=== PATIENT | male | born 1970 | race Caucasian/White ===

== ENCOUNTER 2019-08-14 13:44 | Emergency (ER) | payer OTHER ==
[~2019-08-14] VITALS: Ht 177 cm; Wt 120.0 kg
--- NOTE | 2019-08-14 14:12 | ED General ---
General Chief Complaint: Dizziness/Syncope Stated Complaint: DIZZINESS; BP 162/110 Source of Information: Patient Exam Limitations: No Limitations History of Present Illness Date Seen by Provider: Aug 14, 2019 Time Seen by Provider: 14:09 Initial Comments 49-year-old male presents with dizziness. Patient describes as the room is spinn ing. That he gets a little bit nauseated if he moves around. Symptoms get worse if he moves. Patient also reports his blood pressure is higher than it normally is. He denies any chest pain, vomiting, headache, vision changes, shortness of breath, fever, chills or any other systemic complaints. She does not have any hearing loss or ringing of his ears. He has had a history of recurrent head trauma with concussions. Patient reports symptoms started this morning. No other systemic complaints Allergies and Home Medications Allergies Coded Allergies: codeine (Verified Allergy, Severe, 08/14/19) meperidine (Verified Allergy, Severe, 08/14/19) Patient Home Medication List Home Medication List Reviewed: Yes Review of Systems Review of Systems Constitutional: No chills; dizziness; No fever, No malaise, No weakness EENTM: No ear discharge, No hearing loss, No ear pain, No throat pain Respiratory: No cough, No short of breath Cardiovascular: No chest pain, No palpitations Gastrointestinal: No abdominal pain, No constipation, No diarrhea; nausea; No v omiting Genitourinary: no symptoms reported Musculoskeletal: no symptoms reported Skin: no symptoms reported Psychiatric/Neurological: No Symptoms Reported Hematologic/Lymphatic: No Symptoms Reported Past Fovovbe-Ayexcc-Hbsgno Hx Past Med/Social Hx: Reviewed Nursing Past Med/Soc Hx Patient Social History Alcohol Use: Denies Use Recreational Drug Use: No Smoking Status: Former Smoker 2nd Hand Smoke Exposure: No Recent Foreign Travel: No Recent Hopitalizations: No Physical Abuse: No Sexual Abuse: No Mistreated: No Fear: No Seasonal Allergies Seasonal Allergies: No Past Medical History Surgeries: Yes (KNEE SCOPE, MENISCUS REPAIR 2010, SHOULDER AND NECK SURGERY 1996) Orthopedic Respiratory: No Cardiac: No Neurological: Yes Concussion Genitourinary: No Gastrointestinal: No Musculoskeletal: No Endocrine: No HEENT: No Cancer: No Psychosocial: No Integumentary: No Blood Disorders: No Physical Exam Vital Signs Vital Signs - First Documented 08/14/19 14:08 Temp 36.8 Pulse 96 Resp 18 B/P (MAP) 159/100 (119) Pulse Ox 96 O2 Delivery Room Air Capillary Refill : Height, Weight, BMI Height: '" Weight: lbs. oz. kg; BMI Method: General Appearance: No Apparent Distress, WD/WN HEENT: PERRL/EOMI, TMs Normal, Normal ENT Inspection, Other (horizontal nystagmus) Neck: Normal Inspection, Non Tender, Supple Respiratory: Chest Non Tender, Lungs Clear, Normal Breath Sounds Cardiovascular: Regular Rate, Rhythm Gastrointestinal: Non Tender, Soft Extremity: Normal Capillary Refill, Non Tender Neurologic/Psychiatric: Alert, Oriented x3, No Motor/Sensory Deficits, Normal Mood/Affect, table operator II-XII Norm as Tested Skin: Normal Color, Warm/Dry Progress/Results/Core Measures Suspected Sepsis SIRS Temperature: Pulse: Respiratory Rate: Laboratory Tests 08/14/19 14:28: White Blood Count 8.7 Blood Pressure / Mean: Laboratory Tests 08/14/19 14:28: Creatinine 0.97, Platelet Count 212, Total Bilirubin 0.4 Results/Orders Lab Results Laboratory Tests Test 08/14/19 14:26 08/14/19 14:28 Range/Units Glucometer 98 70-110 MG/DL White Blood Count 8.7 4.3-11.0 10^3/uL Red Blood Count 5.07 4.35-5.85 10^6/uL Hemoglobin 15.1 13.3-17.7 G/DL Hematocrit 44 40-54 % Mean Corpuscular Volume 86 80-99 FL Mean Corpuscular Hemoglobin 30 25-34 PG Mean Corpuscular Hemoglobin Concent 35 32-36 G/DL Red Cell Distribution Width 11.9 10.0-14.5 % Platelet Count 212 130-400 10^3/uL Mean Platelet Volume 10.7 H 7.4-10.4 FL Neutrophils (%) (Auto) 66 42-75 % Lymphocytes (%) (Auto) 25 12-44 % Monocytes (%) (Auto) 8 0-12 % Eosinophils (%) (Auto) 1 0-10 % Basophils (%) (Auto) 1 0-10 % Neutrophils # (Auto) 5.7 1.8-7.8 X 10^3 Lymphocytes # (Auto) 2.2 1.0-4.0 X 10^3 Monocytes # (Auto) 0.7 0.0-1.0 X 10^3 Eosinophils # (Auto) 0.1 0.0-0.3 10^3/uL Basophils # (Auto) 0.1 0.0-0.1 10^3/uL Sodium Level 141 135-145 MMOL/L Potassium Level 3.9 3.6-5.0 MMOL/L Chloride Level 101 98-107 MMOL/L Carbon Dioxide Level 27 21-32 MMOL/L Anion Gap 13 5-14 MMOL/L Blood Urea Nitrogen 12 7-18 MG/DL Creatinine 0.97 0.60-1.30 MG/DL Estimat Glomerular Filtration Rate > 60 BUN/Creatinine Ratio 12 Glucose Level 104 70-105 MG/DL Calcium Level 9.4 8.5-10.1 MG/DL Corrected Calcium 8.5-10.1 MG/DL Total Bilirubin 0.4 0.1-1.0 MG/DL Aspartate Amino Transf (AST/SGOT) 15 5-34 U/L Alanine Aminotransferase (ALT/SGPT) 19 0-55 U/L Alkaline Phosphatase 74 40-136 U/L Troponin I < 0.30 <0.30 NG/ML Total Protein 7.3 6.4-8.2 GM/DL Albumin 4.6 H 3.2-4.5 GM/DL Micro Results Microbiology 08/14/19 Influenza Types A,B Antigen (RAUL) - Final, Complete My Orders Orders - GISELLA LEE DO Ct Head Wo (08/14/19 14:05) Accucheck Stat ONCE (08/14/19 14:05) Ekg Tracing (08/14/19 14:05) Cbc With Automated Diff (08/14/19 14:05) Comprehensive Metabolic Panel (08/14/19 14:05) Influenza A And B Antigens (08/14/19 14:05) Troponin I Fs (08/14/19 14:05) Meclizine Tablet (Antivert Tablet) (08/14/19 14:15) Medications Given in ED Current Medications Medications Dose Ordered Sig/Aleksandra Route Start Time Stop Time Status Last Admin Dose Admin Meclizine HCl 50 mg ONCE ONCE PO 08/14/19 14:15 08/14/19 14:16 DC 08/14/19 14:23 50 MG Vital Signs/I&O 08/14/19 14:08 Temp 36.8 Pulse 96 Resp 18 B/P (MAP) 159/100 (119) Pulse Ox 96 O2 Delivery Room Air Capillary Refill : Progress Note : Time: 15:05 Progress Note A shunt symptoms completely resolved with meclizine. Patient's exam very consistent with benign positional vertigo with negative EKG labs and CT. Patient to be discharged home in stable condition. ECG Initial ECG Impression Date: Aug 14, 2019 Initial ECG Impression Time: 14:23 Initial ECG Rhythm: Normal Sinus Initial ECG Intervals: Normal Initial ECG Impression: Normal Initial ECG Comparisson: No Previous ECG Available Departure Impression Primary Impression: Benign paroxysmal positional vertigo Qualified Codes: H81.10 - Benign paroxysmal vertigo, unspecified ear Disposition: HOME, SELF-CARE Condition: Stable Departure-Patient Inst. Referrals: PA AYALA MD (PCP/Family) Primary Care Physician Patient Instructions: Vertigo (a Type of Dizziness) (DC), Vestibular Exercises Add. Discharge Instructions: Meclizine or antivert as directed on package Emergency department focuses on treating and ruling out life-threatening diseases. Whenever possible, a diagnosis is given. However, most patients are given an impression based on their history, physical exam, and workup during your brief time in the ER. Information about probable diagnosis and other educational material has been provided. Please take the time to read and understand this information. It is very important that you follow up with a physician as discussed during the visit today. Failure to adhere to your follow-up instructions may lead to severe disability, injury, or so please make sure to keep your appointments or obtain one as requested. Please keep in mind the emergency department is not designed to your primary care or "family doctor" and nonurgent issues are best evaluated by an outpatient physician All discharge instructions reviewed with patient and/or family. Voiced understanding. GISELLA LEE DO Aug 14, 2019 14:12
[2019-08-14] MEDS ORDERED: MECLIZINE 25 MG (ANTIVERT) TAB PO ONE (14:15)
--- NOTE | 2019-08-14 14:28 | Diagnostic Imaging Report ---
PROCEDURE: CT head without contrast. TECHNIQUE: Multiple contiguous axial images were obtained through the brain without the use of intravenous contrast. Auto Exposure Controls were utilized during the CT exam to meet ALARA standards for radiation dose reduction. INDICATION: Dizziness. COMPARISON: None. FINDINGS: Moderate generalized cerebral and cerebellar parenchymal volume loss. No intracranial hemorrhage, mass effect, hydrocephalus, or extra-axial fluid collections. No CT evidence of a territorial infarction. Visualized paranasal sinuses and mastoids are clear. No fractures. IMPRESSION: No acute intracranial CT findings. Dictated by: Dictated on workstation # [id number]
[2019-08-14 14:37] LABS: HEMOGLOBIN 15.1 G/DL (13.3-17.7); MEAN CORPUSCULAR HEMOGLOBIN 30 PG (25-34); MEAN CORPUSCULAR HGB CONC 35 G/DL (32-36); MEAN CORPUSCULAR VOLUME 86 FL (80-99); MEAN PLATELET VOLUME 10.7 FL (7.4-10.4); PLATELET COUNT 212 10^3/uL (130-400); RED CELL DISTRIBUTION WIDTH 11.9 % (10.0-14.5); WHITE BLOOD COUNT 8.7 10^3/uL (4.3-11.0)
[2019-08-14 14:38] LABS: BASOPHILS # (AUTO) 0.1 10^3/uL (0.0-0.1); BASOPHILS % (AUTO) 1 % (0-10); EOSINOPHILS # (AUTO) 0.1 10^3/uL (0.0-0.3); EOSINOPHILS % (AUTO) 1 % (0-10); HEMATOCRIT 44 % (40-54); LYMPHOCYTES # (AUTO) 2.2 X 10^3 (1.0-4.0); LYMPHOCYTES % (AUTO) 25 % (12-44); MONOCYTES # (AUTO) 0.7 X 10^3 (0.0-1.0); MONOCYTES % (AUTO) 8 % (0-12); NEUTROPHILS # (AUTO) 5.7 X 10^3 (1.8-7.8); NEUTROPHILS % (AUTO) 66 % (42-75)
[2019-08-14 15:00] LABS: ALANINE AMINOTRANSFERASE 19 U/L (0-55); ALBUMIN 4.6 GM/DL (3.2-4.5); ALKALINE PHOSPHATASE 74 U/L (40-136); BILIRUBIN,TOTAL 0.4 MG/DL (0.1-1.0); BUN/CREATININE RATIO 12; CALCIUM 9.4 MG/DL (8.5-10.1); CARBON DIOXIDE 27 MMOL/L (21-32); CHLORIDE 101 MMOL/L (98-107); CREATININE SERUM 0.97 MG/DL (0.60-1.30); GFR ESTIMATED > 60; GLUCOSE 104 MG/DL (70-105); POTASSIUM 3.9 MMOL/L (3.6-5.0); SODIUM 141 MMOL/L (135-145); TOTAL PROTEIN 7.3 GM/DL (6.4-8.2)
[2019-08-14 15:17] VITALS: BP 150/84
--- OUTSIDE RECORDS SUMMARY | 2019-08-23 08:24 | XMS REPORT ---
Author Author Fernando GATICA Organization [facility] Address Unknown Care Team Providers Care Manager Imaging Name Role Phone CORINNA GATICA Unavailable PROBLEMS Unknown Problems ALLERGIES Substance Reaction Event Type Date Status Codiene Unknown Non Drug Allergy Jan, Active ENCOUNTERS Encounter Location Date Diagnosis [facility] [address] [facility] [id number] [address] [place] [address] [phone] Feb, Dental examination Z01.20 an d Dental caries K02.9 [facility] [id number] [place] [phone] Jan, Dental examination Z01.20 IMMUNIZATIONS No Known Immunizations SOCIAL HISTORY Never Assessed REASON FOR VISIT reza PLAN OF CARE Activity Details Follow Up prn Reason:#32 TE/45 mins VITAL SIGNS Blood pressure systolic 139 mmHg 2017-01-06 Blood pressure diastolic 95 mmHg 2017-01-06 MEDICATIONS Medication Instructions Dosage Frequency Start Date End Date Duration S tatus Amoxicillin 500 MG Orally every 8 hrs 1 capsule 8h 7 days Active RESULTS No Results PROCEDURES Procedure Date Ordered Result Body Site LTD ORAL EVALUATION - PROBLEM FOCUS January 06, 2017 INTRAORL-PERIAPICAL 1 FILM [id number] January 06, 2017 INSTRUCTIONS MEDICATIONS ADMINISTERED No Known Medications MEDICAL (GENERAL) HISTORY Type Description Date Medical History Head, Neck, and/or Jaw injuries Surgical History Broken neck, back 1996
--- OUTSIDE RECORDS SUMMARY | 2019-08-23 08:24 | XMS REPORT | Continuity of Care Document ---
Author Organization Unknown Address Unknown Phone Unavailable Allergies Active Description Code Type Severity Reaction Onset Reported/Identified Relationship to Patient Clinical Status Yes codeine [id number] Drug Allergy Severe N/A 08/14/2019 Yes meperidine [id number] Drug Allerg y Severe N/A 08/14/2019 Medications There is no data. Problems There is no data. Procedures There is no data. Results Test Result Range Influenza virus A and B antigen detectio n - 08/14/19 14:16 FLU RESULT NEGATIVE FOR INFLUENZA A AND B ANTIGENS BY IA NRG Capillary blood glucose measurement by g lucometer (mass/volume) - 08/14/19 14:26 Capillary blood glucose measurement by glucometer (mas s/volume) 98 mg/dL 70-110 Complete blood count (CBC) with automate d white blood cell (WBC) differential - 08/14/19 14:28 Blood leukocytes automated count (number/volume) 8.7 10*3/uL 4.3-11.0 Blood erythrocytes automated count (number/volume) 5.07 10*6/uL 4.35-5.85 Venous blood hemoglobin measurement (mass/volume) 15.1 g/dL 13.3-17.7 Blood hematocrit (volume fraction) 44 % 40-54 Automated erythrocyte mean corpuscular volume 86 [ foz_us] 80-99 Automated erythrocyte mean corpuscular h emoglobin (mass per erythrocyte) 30 pg 25-34 Automated erythrocyte mean corpuscular h emoglobin concentration measurement (mass/volume) 35 g/dL 32-36 Automated erythrocyte distribution width ratio 11. 9 % 10.0- 14.5 Automated blood platelet count (count/volume) 212 10*3/uL 130-400 Automated blood platelet mean volume measurement 10.7 [foz_us] 7.4-10.4 Automated blood neutrophils/100 leukocytes 66 % 42-75 Automated blood lymphocytes/100 leukocytes 25 % 12-44 Blood monocytes/100 leukocytes 8 % 0-12 Automated blood eosinophils/100 leukocytes 1 % 0-10 Automated blood basophils/100 leukocytes 1 % 0-10 Blood neutrophils automated count (number/volume) 5.7 10*3 1.8-7.8 Blood lymphocytes automated count (number/volume) 2.2 10*3 1.0-4.0 Blood monocytes automated count (number/volume) 0. 7 10*3 0.0-1.0 Automated eosinophil count 0.1 10*3/uL 0 .0-0.3 Automated blood basophil count (count/volume) 0.1 10*3/uL 0.0-0.1 Comprehensive metabolic panel - 08/14/19 14:28 Serum or plasma sodium measurement (moles/volume) 141 mmol/L 135-145 Serum or plasma potassium measurement (moles/volume) 3.9 mmol/L 3.6-5.0 Serum or plasma chloride measurement (moles/volume) 101 mmol/L 98-107 Carbon dioxide 27 mmol/L 21-32 Serum or plasma anion gap determination (moles/volume) 13 mmol/L 5-14 Serum or plasma urea nitrogen measurement (mass/volume ) 12 mg/dL 7-18 Serum or plasma creatinine measurement (mass/volume) 0.97 mg/dL 0.60-1.30 Serum or plasma urea nitrogen/creatinine mass ratio 12 NRG Serum or plasma creatinine measurement w ith calculation of estimated glomerular filtration rate > NRG Serum or plasma glucose measurement (mass/volume) 104 mg/dL 70-105 Serum or plasma calcium measurement (mass/volume) 9.4 mg/dL 8.5-10.1 Serum or plasma total bilirubin measurement (mass/volu me) 0.4 mg/dL 0.1-1.0 Serum or plasma alkaline phosphatase beryl surement (enzymatic activity/volume) 74 U/L 40-136 Serum or plasma aspartate aminotransfera se measurement (enzymatic activity/volume) 15 U/L 5-34 Serum or plasma alanine aminotransferase measurement (enzymatic activity/volume) 19 U/L 0-55 Serum or plasma protein measurement (mass/volume) 7.3 g/dL 6.4-8.2 Serum or plasma albumin measurement (mass/volume) 4.6 g/dL 3.2-4.5 TROPONIN I FS - 08/14/19 14:28 TROPONIN I FS < 0.30 <0.30 Encounters ACCT No. Visit Date/Time Discharge Status Pt. Type Provider Facility Loc./Unit Complaint [id number] 08/14/2019 13:48:00 020 15:17:00 DIS Emergency GISELLA LEE DO [facility] FS DIZZINESS; BP 162/110
--- OUTSIDE RECORDS SUMMARY | 2019-08-23 08:24 | XMS REPORT ---
Author Author Fernando REDDING Organization [facility] Address [address] [place] [address] Care Team Providers Care Bulk Sealer Name Role Phone PONCE REDDING Unavailable PROBLEMS Unknown Problems ALLERGIES Substance Reaction Event Type Date Status Codiene Unknown Non Drug Allergy Sep, Active ENCOUNTERS Encounter Location Date Diagnosis [facility] [address] [facility] [id number] [address] [address] Jan, [facility] [address] [place] [address] Sep, Viral gastroenteritis A08.4 and Fever R5 0.9 [facility] [address] [facility] [id number] [address] [place] [phone] Feb, Dental examination Z01.20 an d Dental caries K02.9 [facility] [address] [facility] [id number] [address] [place] [address] [phone] Jan, Dental examination Z01.20 IMMUNIZATIONS No Known Immunizations SOCIAL HISTORY Never Assessed REASON FOR VISIT chilling, fever, achey all over, Pt presents today with fever/ body aches/ chill ing/ vomiting/ cough x2 days/ K. Nanda Cosme TJesika(R) PLAN OF CARE Activity Details Follow Up if not improving with PCP or reg follow up Reason: VITAL SIGNS Height 70 in 2018-09-22 Weight 233 lbs 2018-09-22 Temperature 100.9 degrees Fahrenheit 2018-09-22 Heart Rate 117 bpm 2018-09-22 Oximetry 95 % 2018-09-22 BMI 33.43 kg/m2 2018-09-22 Blood pressure systolic 130 mmHg 2018-09-22 Blood pressure diastolic 76 mmHg 2018-09-22 MEDICATIONS Medication Instructions Dosage Frequency Start Date End Date Duration S tatus Ondansetron 4 MG Orally every 4 hrs 1 tablet on the tong ue and allow to dissolve as needed 4h Sep, 5 days Active RESULTS Name Result Date Reference Range INFLUENZA A & B (IN HOUSE) 2018-09-22 INFLUENZA A neg INFLUENZA B neg Control pass Lot # [id number] Exp date 05-04-19 PROCEDURES Procedure Date Ordered Result Body Site INFLUENZA ASSAY W/OPTIC September 22, 2018 INSTRUCTIONS MEDICATIONS ADMINISTERED No Known Medications MEDICAL (GENERAL) HISTORY Type Description Date Medical History Head, Neck, and/or Jaw injuries Surgical History Broken neck, back 1996 Surgical History shoulder arthroscopy - Left shoulder
== END 2019-08-14 15:17 | disposition home or self-care (01) ==
LOC: ER FS 13:48
DX: H81.10 Benign paroxysmal vertigo, unspecified ear (principal); Z87.820 Personal history of traumatic brain injury; Z88.5 Allergy status to narcotic agent; Z87.891 Personal history of nicotine dependence
CPT/HCPCS: 36415; 70450; 80053; 82962; 84484; 85025; 87804; 93005

== ENCOUNTER 2020-11-23 20:53 | Observation (INO) | payer OTHER ==
[~2020-11-23] VITALS: Ht 177.8 cm; Wt 112.4 kg
--- NOTE | 2020-11-23 20:57 | ED Chest Pain ---
General Stated Complaint: CHEST PAIN Source: patient History of Present Illness Date Seen by Provider: November 23, 2020 Time Seen by Provider: 20:56 Initial Comments 50-year-old male presents with chest pain beginning 30 minutes prior to arrival. Described as extreme pressure and feels like his chest is being pulled apart. Denies any history of coronary artery disease or previous episodes of chest pain otherthan an injury a year ago where he states he broke all of his ribs when a cow trampled him. Only medication is for BP (lisinopril) which he is not taking. No recent illness, no fever, chills, nausea or diaphoresis. Pain waxes and wanes and not associated w movement. Allergies and Home Medications Allergies Coded Allergies: codeine (Verified Allergy, Severe, 08/14/19) enoxaparin (Verified Allergy, Severe, anaphylaxis, 11/24/20) meperidine (Verified Allergy, Severe, 08/14/19) fentanyl (Verified Adverse Reaction, Intermediate, severe nausea, 11/24/20) Home Medications Lisinopril 10 Mg Tablet, 10 MG PO DAILY, (Reported) Last Action: Reviewed Patient Home Medication List Home Medication List Reviewed: Yes Review of Systems Review of Systems Constitutional: No chills, No malaise, No weakness Respiratory: Denies Cough, Denies Shortness of Air Cardiovascular: See HPI, Chest Pain; Denies Lightheadedness, Denies Palpitations, Denies Syncope Gastrointestinal: Denies Abdominal Pain, Denies Nausea, Denies Vomiting Musculoskeletal: back pain (upper back- between shoulder blades) Skin: No change in color, No rash Psychiatric/Neurological: Denies Headache, Denies Numbness, Denies Weakness Past Ndodgpy-Ikdsae-Inlhwx Hx Past Med/Social Hx: Reviewed Nursing Past Med/Soc Hx Physical Exam Vital Signs Vital Signs - First Documented 11/23/20 20:54 Temp 36.8 Pulse 89 Resp 18 B/P (MAP) 142/93 (109) Pulse Ox 97 O2 Delivery Room Air Capillary Refill : Height, Weight, BMI Height: '" Weight: lbs. oz. kg; BMI Method: General Appearance: No Apparent Distress, WD/WN HEENT: PERRL/EOMI, Normal ENT Inspection Neck: Full Range of Motion, Non Tender, Supple Respiratory: Lungs Clear, Normal Breath Sounds, No Accessory Muscle Use, No Respiratory Distress, Other (mild tenderness- Right anterior chest) Cardiovascular: Regular Rate, Rhythm, No Edema, No Gallop, No JVD Gastrointestinal: Normal Bowel Sounds, No Pulsatile Mass, Non Tender, Soft Extremity: Normal Capillary Refill, Non Tender, No Calf Tenderness Neurologic/Psychiatric: Alert, Oriented x3, Normal Mood/Affect Skin: Normal Color, Warm/Dry Progress/Results/Core Measures Results/Orders Lab Results Laboratory Tests Test 11/23/20 20:59 11/23/20 22:10 Range/Units White Blood Count 10.6 4.3-11.0 10^3/uL Red Blood Count 4.83 4.35-5.85 10^6/uL Hemoglobin 15.0 13.3-17.7 G/DL Hematocrit 43 40-54 % Mean Corpuscular Volume 88 80-99 FL Mean Corpuscular Hemoglobin 31 25-34 PG Mean Corpuscular Hemoglobin Concent 35 32-36 G/DL Red Cell Distribution Width 12.1 10.0-14.5 % Platelet Count 227 130-400 10^3/uL Mean Platelet Volume 10.6 H 7.4-10.4 FL Immature Granulocyte % (Auto) 1 % Neutrophils (%) (Auto) 64 42-75 % Lymphocytes (%) (Auto) 27 12-44 % Monocytes (%) (Auto) 7 0-12 % Eosinophils (%) (Auto) 1 0-10 % Basophils (%) (Auto) 1 0-10 % Neutrophils # (Auto) 6.8 1.8-7.8 X 10^3 Lymphocytes # (Auto) 2.8 1.0-4.0 X 10^3 Monocytes # (Auto) 0.8 0.0-1.0 X 10^3 Eosinophils # (Auto) 0.1 0.0-0.3 10^3/uL Basophils # (Auto) 0.1 0.0-0.1 10^3/uL Immature Granulocyte # (Auto) 0.1 0.0-0.1 10^3/uL Sodium Level 142 135-145 MMOL/L Potassium Level 4.1 3.6-5.0 MMOL/L Chloride Level 104 98-107 MMOL/L Carbon Dioxide Level 28 21-32 MMOL/L Anion Gap 10 5-14 MMOL/L Blood Urea Nitrogen 13 7-18 MG/DL Creatinine 1.34 H 0.60-1.30 MG/DL Estimat Glomerular Filtration Rate 56 BUN/Creatinine Ratio 10 Glucose Level 96 70-105 MG/DL Calcium Level 9.7 8.5-10.1 MG/DL Corrected Calcium 9.4 8.5-10.1 MG/DL Total Bilirubin 0.3 0.1-1.0 MG/DL Aspartate Amino Transf (AST/SGOT) 19 5-34 U/L Alanine Aminotransferase (ALT/SGPT) 25 0-55 U/L Alkaline Phosphatase 85 40-136 U/L Troponin I < 0.30 < 0.30 <0.30 NG/ML Total Protein 7.1 6.4-8.2 GM/DL Albumin 4.4 3.2-4.5 GM/DL My Orders Orders - ROVENSTELIGIO MARROQUIN DO Ed Iv/Invasive Line Start (11/23/20 20:56) Cbc With Automated Diff (11/23/20 20:56) Comprehensive Metabolic Panel (11/23/20 20:56) Troponin I Fs (11/23/20 20:56) Ekg Tracing (11/23/20 20:56) Chest 1 View Ap/Pa Only (11/23/20 20:56) Aspirin Chewable Tablet (Baby Aspirin Ch (11/23/20 21:15) Nitroglycerin 0.4 Mg Btl 25's (Nitrostat (11/23/20 21:15) Fentanyl Inj (Sublimaze Injection) (11/23/20 21:30) Ct Chest W (11/23/20 21:21) Ns Iv 1000 Ml (Sodium Chloride 0.9%) (11/23/20 21:45) Iohexol Injection (Omnipaque 350 Mg/Ml 1 (11/23/20 21:45) Received Contrast (Hold Metformin- Contr (11/23/20 21:45) Sodium Chloride Flush (Catheter Flush Sy (11/23/20 21:45) Ns (Ivpb) (Sodium Chloride 0.9% Ivpb Bag (11/23/20 21:45) Ondansetron Injection (Zofran Injectio (11/23/20 21:45) Ondansetron Injection (Zofran Injectio (11/23/20 21:32) Troponin I Fs (11/23/20 22:06) Medications Given in ED Vital Signs/I&O 11/23/20 11/23/20 20:54 23:33 Temp 36.8 Pulse 89 100 Resp 18 18 B/P (MAP) 142/93 (109) 137/80 Pulse Ox 97 96 O2 Delivery Room Air Room Air Progress Progress Note : Time: 21:48 Progress Note Patient did not have relief w NTG, given 50mcg Fentanyl IV and was sedated w pain relief then awoke w severe vomiting episode. Cleaned up and states CP still there but not as bad. Initial ECG Impression Date: November 23, 2020 Initial ECG Impression Time: 20:54 Initial ECG Rate: 88 Initial ECG Rhythm: Normal Sinus Initial ECG Intervals: Normal Initial ECG Impression: Normal Initial ECG Comparisson: No Previous ECG Available Comment no ischemic changes. Diagnostic Imaging Diagonstic Imaging: Xray Plain Films/CT/US/NM/MRI: chest Comments Date of Exam:11/23/20 CHEST 1 VIEW AP/PA ONLY Chest 1 view AP/PA only. Indication: Chest pain. Comparison: None available. Findings: No focal airspace disease in the visualized lungs. Please note that the posterior lower lobes are poorly evaluated by portable radiography. No pleural effusion or pneumothorax. Enlargement of cardiac silhouette could be due to cardiomegaly, although this may be accentuated due to portable technique. Prior surgical changes in the distal right clavicle with a partially threaded lag screw in place. Impression: No acute cardiopulmonary process by portable radiography. Dictated by: Dictated on workstation # [id number] Dict: 11/23/202131 Trans: 11/23/202140 [facility] [id number] Interpreted by: MIR JIANG MD Electronically signed by: MIR JIANG MD 11/23/202140 Departure Communication (Admissions) Time/Spoke to Admitting Phy: 23:[address] Link who accepts for OBs admission. Discussed presentation of severe "tearing chest pain" beginning 30 minutes PERSONAL INJURY [employer] and work up including CT with normal findings. 2 normal troponins 1 hour apart. Patient without a cardiac Hx. Does have significant Hx of trauma including multiple rib fx's one year ago. Impression Primary Impression: Chest pain Qualified Codes: R07.9 - Chest pain, unspecified Disposition: 30 STILL A PATIENT Condition: Improved Admissions Decision to Admit Reason: Admit from ER (General) Decision to Admit/Date: November 23, 2020 Time/Decision to Admit Time: 21:00 ELIGIO DANIELS DO November 23, 2020 20:57
[2020-11-23 21:05] LABS: BASOPHILS # (AUTO) 0.1 10^3/uL (0.0-0.1); BASOPHILS % (AUTO) 1 % (0-10); EOSINOPHILS # (AUTO) 0.1 10^3/uL (0.0-0.3); EOSINOPHILS % (AUTO) 1 % (0-10); HEMATOCRIT 43 % (40-54); LYMPHOCYTES # (AUTO) 2.8 X 10^3 (1.0-4.0); LYMPHOCYTES % (AUTO) 27 % (12-44); MEAN CORPUSCULAR HEMOGLOBIN 31 PG (25-34); MEAN CORPUSCULAR HGB CONC 35 G/DL (32-36); MEAN CORPUSCULAR VOLUME 88 FL (80-99); MEAN PLATELET VOLUME 10.6 FL (7.4-10.4); MONOCYTES # (AUTO) 0.8 X 10^3 (0.0-1.0); MONOCYTES % (AUTO) 7 % (0-12); NEUTROPHILS # (AUTO) 6.8 X 10^3 (1.8-7.8); NEUTROPHILS % (AUTO) 64 % (42-75); PLATELET COUNT 227 10^3/uL (130-400); WHITE BLOOD COUNT 10.6 10^3/uL (4.3-11.0)
[2020-11-23] MEDS ORDERED: ASPIRIN 81 MG CHEW (CHILDREN'S ASA) PO ONE (21:15)
[2020-11-23] MEDS ORDERED: NITROGLYCERIN 0.4 MG SL TABS BTL 25'S SL PRN (21:15)
[2020-11-23 21:23] LABS: ALANINE AMINOTRANSFERASE 25 U/L (0-55); ALBUMIN 4.4 GM/DL (3.2-4.5); ALKALINE PHOSPHATASE 85 U/L (40-136); BILIRUBIN,TOTAL 0.3 MG/DL (0.1-1.0); BUN/CREATININE RATIO 10; CALCIUM 9.7 MG/DL (8.5-10.1); CARBON DIOXIDE 28 MMOL/L (21-32); CHLORIDE 104 MMOL/L (98-107); CREATININE SERUM 1.34 MG/DL (0.60-1.30); GFR ESTIMATED 56; GLUCOSE 96 MG/DL (70-105); POTASSIUM 4.1 MMOL/L (3.6-5.0); SODIUM 142 MMOL/L (135-145); TOTAL PROTEIN 7.1 GM/DL (6.4-8.2)
[2020-11-23] MEDS ORDERED: fentaNYL INJ 100 MCG/2 ML AMP IVP ONE (21:30)
[2020-11-23] MEDS ORDERED: ONDANSETRON 4 MG/2 ML (SDV) Z0FRAN ONE (21:32)
--- NOTE | 2020-11-23 21:37 | Diagnostic Imaging Report ---
Chest 1 view AP/PA only. Indication: Chest pain. Comparison: None available. Findings: No focal airspace disease in the visualized lungs. Please note that the posterior lower lobes are poorly evaluated by portable radiography. No pleural effusion or pneumothorax. Enlargement of cardiac silhouette could be due to cardiomegaly, although this may be accentuated due to portable technique. Prior surgical changes in the distal right clavicle with a partially threaded lag screw in place. Impression: No acute cardiopulmonary process by portable radiography. Dictated by: Dictated on workstation # [id number]
[2020-11-23] MEDS ORDERED: CATHETER FLUSH 10 ML SYR IV PRN (21:45)
[2020-11-23] MEDS ORDERED: IOHEXOL 350 MG/ML 150 ML (OMNIPAQUE 350) VIAL IV ONE (21:45)
[2020-11-23] MEDS ORDERED: HOLD METFORMIN - RECEIVED CONTRAST 20 ML VIAL IV SCH (21:45)
[2020-11-23] MEDS ORDERED: ONDANSETRON 4 MG/2 ML (SDV) Z0FRAN IVP ONE (21:45)
[2020-11-23] MEDS ORDERED: NS 100 ML (IVPB) BAG IV ONE (21:45)
[2020-11-23] MEDS ORDERED: NS IV 1000 ML 1,000 ML IV SCH (21:45)
[2020-11-24 00:50] VITALS: BP 139/86
[2020-11-24] MEDS ORDERED: NS IV 1000 ML 1,000 ML IV SCH (01:15)
[2020-11-24] MEDS ORDERED: ONDANSETRON 4 MG/2 ML (SDV) Z0FRAN IVP PRN (01:15)
[2020-11-24] MEDS ORDERED: NITROGLYCERIN 0.4 MG SL TABS BTL 25'S SL PRN (01:15)
[2020-11-24 03:29] LABS: CHOLESTEROL 165 MG/DL (< 200); HDL CHOLESTEROL 44 MG/DL (40-60); TRIGLYCERIDES 121 MG/DL (<150); VLDL CHOLESTEROL 24 MG/DL (5-40)
[2020-11-24 04:59] VITALS: BP 125/78
[2020-11-24] MEDS ORDERED: LISI10TA25 PO (06:58)
[2020-11-24 08:00] VITALS: BP 132/78
--- NOTE | 2020-11-24 08:40 | Diagnostic Imaging Report ---
PROCEDURE: CT chest with contrast only. TECHNIQUE: Multiple contiguous axial images were obtained through the chest after administration of intravenous contrast. Auto Exposure Controls were utilized during the CT exam to meet ALARA standards for radiation dose reduction. INDICATION: Severe chest pain COMPARISON: Chest x-ray from the same day FINDINGS: The heart is upper normal in size. There is no pericardial effusion. The aorta is normal in caliber and no evidence of dissection is seen on these images. There is no mediastinal or axillary adenopathy. There is motion artifact throughout the exam, resulting in suboptimal evaluation. This appears to cause some haziness in the lungs but no focal consolidation is seen. There is minimal dependent atelectasis in the lungs. There is no pleural effusion or pneumothorax. No central endobronchial lesions are identified. No acute osseous abnormality is seen. Imaged portions of the upper abdomen demonstrate no acute abnormality. IMPRESSION: 1. Motion degraded exam, but no focal consolidation or acute pulmonary abnormality is identified. 2. No dissection seen of the thoracic aorta. Dictated by: Dictated on workstation # [id number]
[2020-11-24] MEDS ORDERED: ASPIRIN E.C. 81 MG (ECOTRIN) TAB PO SCH (09:00)
[2020-11-24 12:00] VITALS: BP 141/97
--- NOTE | 2020-11-24 12:19 | Short Stay Summary-Hospitalist ---
History of Present Illness HPI/Chief Complaint Pt is a 50yoCM with a PMH of HTN and GERD who presented to the ER due to severe chest pain. 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 After getting home he developed severe tearing chest pain. He has a history of rib fractures and muscle injuries and this did not feel similar to that. He was somewhat SOB but was not nauseated. He is not very compliant with his Lisinopril and was worried he was having a heart attack so decided to seek evaluation in the ER. CTA was done and was negative for PE and dissection or aortic injury. He was given fentanyl for pain and started vomiting profusely. Troponin on arrival was negative. he was admitted for observation. He reports now that his symptoms are all resolved and he would like to go home. Source: patient Date Seen 11/24/20 Time Seen by a Provider: 12:14 Attending Physician Rachele Link MD PCP Marlene Meehan MD Referring Physician Date of Admission November 24, 2020 at 00:45 Home Medications & Allergies Home Medications Reviewed patient Home Medication Reconciliation performed by pharmacy medication reconciliations organic extractions technician and/or nursing. Patients Allergies have been reviewed. Allergies Allergies Coded Allergies codeine (Verified Allergy, Severe, 08/14/19) enoxaparin (Verified Allergy, Severe, anaphylaxis, 11/24/20) meperidine (Verified Allergy, Severe, 08/14/19) fentanyl (Verified Adverse Reaction, Intermediate, severe nausea, 11/24/20) Past Medical/Social/Family Hx Patient Social History Employed/Student: employed Tobacco Use?: No Substance use?: No Alcohol Use?: No Pt stated abuse/neglect: No Immunizations Up To Date Influenza Vaccine Up-to-Date: No; Not Current Current Status Advance Directives: No Communicates: Verbally Primary Language: Egyptian Preferred Spoken Language: Egyptian Is interpretation needed?: No Implanted or Applied Medical D: None Review of Systems Constitutional: No chills, No fever EENTM: no symptoms reported Respiratory: No cough, No dyspnea on exertion, No orthopnea, No phlegm; short of breath Cardiovascular: chest pain; No edema, No Hx of Intervention, No palpitations, No syncope Gastrointestinal: No abdominal pain; heartburn, nausea, vomiting Genitourinary: no symptoms reported Musculoskeletal: no symptoms reported Skin: no symptoms reported, rash (chronic- worked up by Dr Meehan) Psychiatric/Neurological: No Symptoms Reported Physical Exam Physical Exam Vital Signs Vital Signs - First Documented 11/23/20 20:54 Temp 36.8 Pulse 89 Resp 18 B/P (MAP) 142/93 (109) Pulse Ox 97 O2 Delivery Room Air Capillary Refill : Less Than 3 Seconds Height, Weight, BMI Height: '" Weight: lbs. oz. kg; 35.55 BMI Method: General Appearance: No Apparent Distress, WD/WN, Obese HEENT: PERRL/EOMI, Moist Mucous Membranes; No Scleral Icterus (L), No Scleral Icterus (R) Neck: Normal Inspection, Supple Respiratory: Chest Non Tender, Lungs Clear, No Accessory Muscle Use, No Respiratory Distress, Other (mild tenderness- Right anterior chest) Cardiovascular: Regular Rate, Rhythm, No JVD, No Murmur Gastrointestinal: Normal Bowel Sounds, No Pulsatile Mass, Non Tender, Soft; No Distended, No Guarding Extremity: Normal Capillary Refill, Non Tender, No Calf Tenderness, No Pedal Edema; No Swelling Neurologic/Psychiatric: Alert, Oriented x3, No Motor/Sensory Deficits, Normal Mood/Affect Skin: Normal Color, Warm/Dry Results Results/Procedures Labs Laboratory Tests 11/23/20 20:59 Patient resulted labs reviewed. Imaging: Reviewed Imaging Report Imaging [facility], [place] NAME: ALIZA BOYD [facility] REC#: [id number] PT STATUS: REG ER : 1970 PHYSICIAN: ELIGIO DANIELS DO ADMIT DATE: 11/23/20/ER FS Signed Date of Exam:11/23/20 CHEST 1 VIEW AP/PA ONLY Chest 1 view AP/PA only. Indication: Chest pain. Comparison: None available. Findings: No focal airspace disease in the visualized lungs. Please note that the posterior lower lobes are poorly evaluated by portable radiography. No pleural effusion or pneumothorax. Enlargement of cardiac silhouette could be due to cardiomegaly, although this may be accentuated due to portable technique. Prior surgical changes in the distal right clavicle with a partially threaded lag screw in place. Impression: No acute cardiopulmonary process by portable radiography. Dictated by: Dictated on workstation # [id number] Dict: 11/23/202131 Trans: 11/23/202140 [facility] [id number] Interpreted by: MIR JIANG MD Electronically signed by: MIR JIANG MD 11/23/202140 [facility] [place] NAME: ALIZA BOYD [facility] REC#: [id number] PT STATUS: ADM Tanya : 1970 PHYSICIAN: ELIGIO DANIELS DO ADMIT DATE: 11/24/20 Draft Date of Exam:11/23/20 CT CHEST W PROCEDURE: CT chest with contrast only. TECHNIQUE: Multiple contiguous axial images were obtained through the chest after administration of intravenous contrast. Auto Exposure Controls were utilized during the CT exam to meet ALARA standards for radiation dose reduction. INDICATION: Severe chest pain COMPARISON: Chest x-ray from the same day FINDINGS: The heart is upper normal in size. There is no pericardial effusion. The aorta is normal in caliber and no evidence of dissection is seen on these images. There is no mediastinal or axillary adenopathy. There is motion artifact throughout the exam, resulting in suboptimal evaluation. This appears to cause some haziness in the lungs but no focal consolidation is seen. There is minimal dependent atelectasis in the lungs. There is no pleural effusion or pneumothorax. No central endobronchial lesions are identified. No acute osseous abnormality is seen. Imaged portions of the upper abdomen demonstrate no acute abnormality. IMPRESSION: 1. Motion degraded exam, but no focal consolidation or acute pulmonary abnormality is identified. 2. No dissection seen of the thoracic aorta. Dictated on workstation # [id number] Dict: 11/24/2014 Trans: 11/24/20 0838 [facility] [id number] Interpreted by: CORINNA MARISCAL MD Electronically signed by: Short Stay Diagnosis Discharge Diagnosis-Short Stay Admission Diagnosis Chest pain Final Discharge Diagnosis Chest pain Conclusion Plan Chest pain HTN troponin negative x3 Monitored on telemetry Cardiology consulted, appreciate recs negative CT chest Sounds more like esophageal spasm Encouraged compliance with Nexium DVT ppx: Allergy to lovenox- ambulate/SCDs RACHELE LINK MD November 24, 2020 12:19
--- NOTE | 2020-11-24 13:17 | Discharge Inst-Simple/Standard ---
Discharge Inst-Standard Patient Instructions/Follow Up Plan of Care/Instructions/FU: Please continue to take your medications as written. Please follow up with your primary care doctor to follow up this hospital stay. Activity as Tolerated: Yes Discharge Diet: Cardiac Diet Return to The Hospital For: Chest pain, shortness of breath, confusion, weakness, fever, if you feel you are getting worse. RACHELE RAMIREZ MD November 24, 2020 13:17
--- NOTE | 2020-11-24 18:13 | Consultation-Cardiology ---
HPI-Cardiology Cardiology Consultation: Date of Consultation 11/24/20 Date of Admission Attending Physician Rosangela Link MD Admitting Physician Marlene Meehan MD Consulting Physician Heriberto TAY MD HPI: Time Seen by a Provider: 12:00 Chief Complaint: Chest pain This is a 50-year-old gentleman with history of hypertension and GERD. He presents with chest pain. He has had numerous traumatic injuries to his chest with numerous rib fractures. However he complained of tearing chest pain and went to [facility]. CT angiography did not show any evidence of pulmonary embolism or aortic dissection. Cardiac troponin x3 are negative. When I saw the patient he was not having any further chest pain and was very comfortable. Review of Systems-Cardiology Review of Systems Constitutional: As described under HPI; No As described under HPI, No no symptoms reported, No chills, No fever, No lightheadedness Eyes: No As described under HPI, No no symptoms reported, No blindness, No blurred vision, No contact lenses, No drainage, No decreased acuity, No foreign body sensation, No pain, No vision change Ears/Nose/Throat: No As described under HPI, No no symptoms reported, No chronic hearing loss, No ear discharge, No ear pain, No nasal drainage, No ulcerations Respiratory: No no symptoms reported; As described under HPI; No As described under HPI, No cough, No orthopnea, No shortness of breath, No SOB with excertion Cardiovascular: No no symptoms reported; As described under HPI; No As described under HPI; chest pain; No edema, No irregular heart rate, No lightheadedness, No palpitations Gastrointestinal: No no symptoms reported, No As described under HPI, No abdomen distended, No abdominal pain, No blood streaked bowels, No constipation, No diarrhea, No nausea, No vomiting, No stool coloration changes Genitourinary: No As described under HPI, No burning, No dysuria, No discharge, No frequency, No flank pain, No hematuria, No urgency Skin: No rash, No skin related problems, No ulcerations Psychiatric/Neurological: No anxiety, No depression, No seizure, No focal weakness, No syncope Hematologic: No bleeding abnormalities WLM-Zispbj-Jyjgyl Hx Patient Social History Employed/Student: employed 2nd [employer] Smoke Exposure: No Have you traveled recently?: No Alcohol Use?: No Pt feels they are or have been: No Past Medical History PMH As described under Assessment. Allergies and Home Medications Allergies Coded Allergies: codeine (Verified Allergy, Severe, 08/14/19) enoxaparin (Verified Allergy, Severe, anaphylaxis, 11/24/20) meperidine (Verified Allergy, Severe, 08/14/19) fentanyl (Verified Adverse Reaction, Intermediate, severe nausea, 11/24/20) Home Medications Lisinopril 10 Mg Tablet, 10 MG PO DAILY, (Reported) Last Action: Reviewed Patient Home Medication List Home Medication List Reviewed: Yes Physical Exam-Cardiology Physical Exam Vital Signs/I&O 11/24/20 11/24/20 11/24/20 11/24/20 07:00 08:00 08:00 12:00 Temp 36.6 36.5 Pulse 105 83 98 Resp 22 20 B/P (MAP) 132/78 (96) 141/97 (112) Pulse Ox 97 97 O2 Delivery Room Air Room Air Room Air 11/24/20 11/24/20 12:38 14:00 Pulse 77 B/P (MAP) 11/24/20 00:00 Intake Total 1000 ml Balance 1000 ml Capillary Refill : Less Than 3 Seconds Constitutional: appears stated age, AAO x 3; No apparent distress; well- developed, well-nourished HEENT: PERRL; No discharge; hearing is well preserved, oral hygience is good; No ulceration, No xanthelasmas are seen Neck: No carotid bruit; carotid pulses are 2 + bilaterally Respiratory: chest is bilaterally symmetric, lungs clear to auscultation Cardiovascular: regular rate-rhythm, S1 and S2 Gastrointestinal: soft, audible bowel sounds; No spleenomegaly Rectal: deferred Extremities: No clubbing, No cyanosis; no lower extremity edema bilateral; No significant edema Neurologic/Psychiatric: no motor/sensory deficits, alert, normal mood/affect, oriented x 3, power is 5/5 both on sides Skin: normal color; No rash, No ulcerations Data Review Labs Laboratory Tests 11/23/20 20:59: White Blood Count 10.6, Red Blood Count 4.83, Hemoglobin 15.0, Hematocrit 43, Mean Corpuscular Volume 88, Mean Corpuscular Hemoglobin 31, Mean Corpuscular Hemoglobin Concent 35, Red Cell Distribution Width 12.1, Platelet Count 227, Mean Platelet Volume 10.6H, Immature Granulocyte % (Auto) 1, Neutrophils (%) (Auto) 64, Lymphocytes (%) (Auto) 27, Monocytes (%) (Auto) 7, Eosinophils (%) (Auto) 1, Basophils (%) (Auto) 1, Neutrophils # (Auto) 6.8, Lymphocytes # (Auto) 2.8, Monocytes # (Auto) 0.8, Eosinophils # (Auto) 0.1, Basophils # (Auto) 0.1, Immature Granulocyte # (Auto) 0.1, Sodium Level 142, Potassium Level 4.1, Chloride Level 104, Carbon Dioxide Level 28, Anion Gap 10, Blood Urea Nitrogen 13, Creatinine 1.34H, Estimat Glomerular Filtration Rate 56, BUN/Creatinine Ratio 10, Glucose Level 96, Calcium Level 9.7, Corrected Calcium 9.4, Total Tony irubin 0.3, Aspartate Amino Transf (AST/SGOT) 19, Alanine Aminotransferase (ALT/SGPT) 25, Alkaline Phosphatase 85, Troponin I < 0.30, Total Protein 7.1, Albumin 4.4 11/23/20 22:10: Troponin I < 0.30 11/24/20 03:00: Troponin I < 0.028, Triglycerides Level 121, Cholesterol Level 165, LDL Cholesterol Direct 113, VLDL Cholesterol 24, HDL Cholesterol 44 ECG Impression ECG Initial ECG Rhythm: Normal Sinus Initial ECG Impression: Normal A/P-Cardiology Assessment/Admission Diagnosis Chest pain, Hypertension, Previous history of traumatic injuries to the chest. Plan Aortic dissection pulmonary embolism ruled out with a negative CTA. Serial troponin x3 -. EKG does not show any acute ST-T wave abnormalities. I discussed at length with the patient and and recommended an inpatient nuclear stress test tomorrow morning. However the patient insisted to go home. I discussed with him the small risk of having an PR overnight. He understands the risk and would still like to go home. We will arrange for nuclear stress test tomorrow. Follow-up with Dr. Davis or Dr. Niño. Thank you for your consultation. Please call me if you have any questions. Ponce Tay MD, FACP, FACC, FSCAI, FHRS, CCDS Interventional Cardiology Cardiac Electrophysiology Vascular Medicine and Endovascular Interventions Heriberto TAY MD November 24, 2020 18:13
== END 2020-11-24 14:50 | disposition home or self-care (01) ==
LOC: EDUNIT# 20:53 → ER FS 20:57 → 4TH 11-24 00:45
PROVIDERS: ADMIT Family Medicine; ATTEND Family Medicine
DX: R07.89 Other chest pain (principal); I11.9 Hypertensive heart disease without heart failure; K21.9 Gastro-esophageal reflux disease without esophagitis; Z87.81 Personal history of (healed) traumatic fracture; Z87.828 Personal history of other (healed) physical injury and trauma; Z91.14 Patient's other noncompliance with medication regimen; Z88.5 Allergy status to narcotic agent; Z88.8 Allergy status to other drugs, medicaments and biological substances; Z79.899 Other long term (current) drug therapy
CPT/HCPCS: 36415; 71045; 71260; 80053; 80061; 84484; 85025; 93005; G0378

== ENCOUNTER → 2021-06-04 | Outpatient (CLI) | payer OTHER ==
[~2021-06-04] MED LIST: LISI10TA25 PO
--- NOTE | 2021-06-04 10:29 | Diagnostic Imaging Report ---
INDICATION: Cough. Comparison with CT chest from 11/23/2020. FINDINGS: PA and lateral views. The lungs are well-aerated and clear. There is no air-trapping. The heart is not enlarged. No pulmonary edema or hilar adenopathy. No pneumothorax or pleural effusion. No bony abnormalities. IMPRESSION: Normal PA and lateral chest. Dictated by: Dictated on workstation # [id number]
== END ==
LOC: RAD FS 10:11
PROVIDERS: ATTEND Registered Nurse Emergency
DX: R05.1 Acute cough (principal)
CPT/HCPCS: 71046

== ENCOUNTER 2022-11-02 19:06 | Emergency (ER) | payer OTHER ==
[~2022-11-02] VITALS: Ht 177 cm; Wt 111.1 kg
[2022-11-02] MEDS ORDERED: KETOROLAC 60 MG/2 ML VIAL IM STA (19:25)
[2022-11-02] MEDS ORDERED: ORPHENADRINE 60 MG/2 ML (NORFLEX) AMP (ED ONLY) IM STA (19:25)
--- NOTE | 2022-11-02 19:32 | ED Fall/Injury ---
General Stated Complaint: FELL,R LEG PAIN Source: patient History of Present Illness Date Seen by Provider: November 02, 2022 Time Seen by Provider: 19:09 Initial Comments 52-year-old male presenting by private vehicle with complaints of increasing pain to his right hip and pelvis and right femur since falling at noon today. 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 He had continued to work after the injury. He denies hitting his leg on anything or having prior injury/problems with hip/leg. He has not taken any medicine for his pain. He denies numbness or tingling in the leg. He has increased pain with am bulation and movement. He has history of hypertension and takes lisinopril but has not taken it today. He feels that the pain increased as he was sitting in his truck in the afternoon and for drive here. He denies hitting his head or getting knocked out. He reports talking to a family member that is a nurse and they told him that he might have a broken leg and he should go be seen in the ED. Occurred: this afternoon (around noon today) Severity: severe Injuries/Pain Location: lower extremity (right hip/pelvis/medial thigh) Context: tripped Loss of Consciousness: no loss of consciousness Modifying Factors: Worse With Movement Associated Symptoms (Fall): No Abdominal Pain, No Chest Pain, No Confusion, No Dizziness, No Headache, No Lightheadedness, No Muscle Spasms, No Nausea/Vomiting, No Neck Pain, No Ringing in Ears, No Seizures, No Shortness of Air, No Slurred Speech; Trouble Walking (due to pain in thigh/pelvis/hip); No Vision Changes Allergies and Home Medications Allergies Coded Allergies: codeine (Verified Allergy, Severe, 08/14/19) enoxaparin (Verified Allergy, Severe, anaphylaxis, 11/24/20) meperidine (Verified Allergy, Severe, 08/14/19) fentanyl (Verified Adverse Reaction, Intermediate, severe nausea, 11/24/20) Patient Home Medication List Home Medication List Reviewed: Yes Ibuprofen (Ibuprofen) 800 Mg Tablet, 800 MG PO Q8H PRN for PAIN Prescribed by: MARIE OROSCO on 11/02/222014 Lisinopril (Lisinopril) 10 Mg Tablet, 10 MG PO DAILY, (Reported) Entered as Reported by: CINTIA ORLANDO on 11/24/20 0658 Methocarbamol (Methocarbamol) 750 Mg Tablet, 1,500 MG PO Q8H PRN for muscle spasms/pain Prescribed by: MARIE OROSCO on 11/02/222014 Review of Systems Review of Systems Constitutional: No chills, No fever Eyes: No Symptoms Reported Ears, Nose, Mouth, Throat: no symptoms reported Respiratory: no symptoms reported Cardiovascular: no symptoms reported Gastrointestinal: no symptoms reported Genitourinary: no symptoms reported Musculoskeletal: see HPI Skin: change in color (faint bruise to right medial thigh) Psychiatric/Neurological: Denies Numbness, Denies Tingling, Denies Weakness Past Ldbebrb-Phwegf-Houvol Hx Seasonal Allergies Seasonal Allergies: No Past Medical History Surgery/Hospitalization HX: Hypertension Surgeries: Yes (KNEE SCOPE, MENISCUS REPAIR 2010, SHOULDER AND NECK SURGERY 1996) Orthopedic Respiratory: No Cardiac: Yes Hypertension Neurological: Yes Concussion Genitourinary: No Gastrointestinal: No Musculoskeletal: No Endocrine: No HEENT: No Cancer: No Psychosocial: No Integumentary: No Blood Disorders: No Physical Exam Vital Signs Capillary Refill : Height, Weight, BMI Height: '" Weight: lbs. oz. kg; 35.55 BMI Method: General Appearance: WD/WN, no apparent distress, obese Cardiovascular: normal peripheral pulses Extremities: normal range of motion (has pain with ROM), normal capillary refill, other (pain to right thigh, pain with ROM to right hip and leg. no crepitus or stepoff or deformity noted to right thigh/hip/pelvis. distal intact neurovascular and tendons. He has faint ecchymosis to medial thigh and erythematous hair follicles to bilateral thighs for possible folliculitis. 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, no motor/sensory deficits, alert, oriented x 3 Skin: warm/dry Dahiana Coma Score Best Eye Response: (4) Open Spontaneously Best Verbal Response: (5) Oriented Best Motor Response: (6) Obeys Commands Dahiana Total: 15 Progress/Results/Core Measures Results/Orders My Orders Orders - MARIE OROSCO MD Ketorolac Injection (Toradol Injection) (11/02/22 19:25) Orphenadrine Inj (Ed Only) (Norflex Inje (11/02/22 19:25) Femur 2 View Right (11/02/22 19:25) Pelvis (Ap) (11/02/22 19:25) Progress Progress Note #1: Progress Note Potential diagnosis of groin strain, thigh contusion, hip fracture, pubic ramus fracture, pelvis fracture. Order Toradol 60 mg IM for pain and inflammation along with Norflex 60 mg IM for muscle spasms and pain. X-rays of the pelvis and right femur to evaluate for possible bony abnormality. He is able to stand and walk but it is painful for him. Progress Note #2: Time: 20:11 Progress Note On my personal interpretation and review of his right femur and pelvis x-rays did not appreciate any acute fracture or bony abnormality. He had no dislocation. We will proceed with anti-inflammatories and muscle relaxer. Use ice for 20 to 30 minutes every few hours as needed for pain and add in heat after 2 days. If not improving over the next 3 to 7 days check back with the primary care provider for further evaluation. Progress Note #3: Time: 20:25 Progress Note I reviewed the radiologist reports on the femur and pelvis x-rays in the did not see anything else acute similar to my interpretations. When reviewing results with the patient she reports that the medicine that we had given him was starting to kick in and he was feeling better with less pain and able to move easier. Diagnostic Imaging Diagonstic Imaging: Xray Plain Films/CT/US/NM/MRI: pelvis Comments [facility], [place] NAME: ALIZA BOYD [facility] REC#: [id number] PT STATUS: REG ER : 1970 PHYSICIAN: MARIE OROSCO MD ADMIT DATE: 11/02/22/ER FS Signed Date of Exam:11/02/22 PELVIS (AP) EXAMINATION: AP view of the pelvis TECHNIQUE: AP view of the pelvis HISTORY: right hip/pelvis pain since fall at noon today COMPARISON: None available. FINDINGS: No acute osseous findings. Normal joint spaces. Visualized bowel is nondistended. Surgical clips noted within the upper right carlin-abdomen. No unexpected radiopaque foreign bodies. IMPRESSION: No acute osseous findings. Dictated by: Dictated on workstation # [id number] Dict: 11/02/222015 Trans: 11/02/222016 [facility] [place] [id number] Interpreted by: LISANDRO BONNER DO Electronically signed by: LISANDRO BONNER DO 11/02/222016 Reviewed: Reviewed by Me Diagonstic Imaging: Xray Plain Films/CT/US/NM/MRI: femur Comments [facility] [place], [place] NAME: ALIZA BOYD [facility] REC#: [id number] PT STATUS: REG ER : 1970 PHYSICIAN: MARIE OROSCO MD ADMIT DATE: 11/02/22/ER FS Signed Date of Exam:11/02/22 FEMUR 2 VIEW RIGHT EXAMINATION: AP and lateral views of the right femur obtained. TECHNIQUE: AP and lateral views of the right femur obtained. HISTORY: right hip/thigh pain since fall at noon today COMPARISON: None available. FINDINGS: No acute fracture or dislocation of the right femur. Normal joint space. No unexpected radiopaque foreign body. IMPRESSION: No acute osseous findings. Dictated by: Dictated on workstation # [id number] Dict: 11/02/222016 Trans: 11/02/222017 [facility] [place] [id number] Interpreted by: LISANDRO BONNER DO Electronically signed by: LISANDRO BONNER DO 11/02/222017 Reviewed: Reviewed by Me Departure Impression Primary Impression: Strain of right groin Additional Impressions: Pain in right thigh Fall Qualified Codes: W19.XXXA - Unspecified fall, initial encounter Disposition: HOME, SELF-CARE Condition: Improved Departure-Patient Inst. Decision time for Depature: 20:14 Referrals: PA AYALA MD (PCP/Family) Primary Care Physician Patient Instructions: Preventing Falls ED, Leg Muscle Strain ED, Groin Strain ED Add. Discharge Instructions: Stay well-hydrated and drink plenty of fluids to help flush out the inflammation. May apply ice for 15 to 20 minutes every few hours as needed for pain and inflammation. After 2 days she could add in her alternate with heat. Continue on anti-inflammatory and muscle relaxer to help with pain. Check back with the clinic if not improving over the next 3 to 7 days. Scripts Methocarbamol (Methocarbamol) 750 Mg Tablet 1500 MG PO Q8H PRN for muscle spasms/pain for 5 Days, #30 TAB 0 Refills Prov: MARIE OROSCO MD 11/02/22 Ibuprofen (Ibuprofen) 800 Mg Tablet 800 MG PO Q8H PRN for PAIN for 10 Days, #30 TAB 0 Refills Prov: MARIE OROSCO MD 11/02/22 Work/School Note: Work Release Form Date Seen in the Emergency Department: November 02, 2022 Return to Work: November 05, 2022 Restrictions: No Restrictions MARIE OROSCO MD November 02, 2022 19:32
[2022-11-02] MEDS ORDERED: IBUP-1780 PO (20:15)
[2022-11-02] MEDS ORDERED: METH-732 PO (20:15)
--- NOTE | 2022-11-02 20:18 | Diagnostic Imaging Report ---
EXAMINATION: AP view of the pelvis TECHNIQUE: AP view of the pelvis HISTORY: right hip/pelvis pain since fall at noon today COMPARISON: None available. FINDINGS: No acute osseous findings. Normal joint spaces. Visualized bowel is nondistended. Surgical clips noted within the upper right carlin-abdomen. No unexpected radiopaque foreign bodies. IMPRESSION: No acute osseous findings. Dictated by: Dictated on workstation # [id number]
--- NOTE | 2022-11-02 20:19 | Diagnostic Imaging Report ---
EXAMINATION: AP and lateral views of the right femur obtained. TECHNIQUE: AP and lateral views of the right femur obtained. HISTORY: right hip/thigh pain since fall at noon today COMPARISON: None available. FINDINGS: No acute fracture or dislocation of the right femur. Normal joint space. No unexpected radiopaque foreign body. IMPRESSION: No acute osseous findings. Dictated by: Dictated on workstation # [id number]
[2022-11-02 20:40] VITALS: BP 158/88
== END 2022-11-02 20:40 | disposition home or self-care (01) ==
LOC: EDUNIT# 19:06 → ER FS 19:07
DX: S39.011A Strain of muscle, fascia and tendon of abdomen, initial encounter (principal); S70.11XA Contusion of right thigh, initial encounter; I10 Essential (primary) hypertension; Z79.899 Other long term (current) drug therapy; Z28.310 Unvaccinated for COVID-19; W01.0XXA Fall on same level from slipping, tripping and stumbling without subsequent striking against object, initial encounter; Y93.02 Activity, running
CPT/HCPCS: 72170; 73552